=== PATIENT | female | born 1965 | race Caucasian/White ===

== ENCOUNTER 2021-12-18 10:31 | Outpatient (CLI) | payer OTHER, SELFPAY | END 2021-12-18 10:32 | disposition home or self-care (01) | LOC: INJ CL 10:33 | PROVIDERS: PCP Family Medicine; Visit Provider Family Medicine | DX: M48.062 Spinal stenosis, lumbar region with neurogenic claudication (principal); M54.16 Radiculopathy, lumbar region | CPT/HCPCS: 62323; J0702; Q9966 ==

== ENCOUNTER 2022-01-14 16:50 | Outpatient (CLI) | payer OTHER, SELFPAY ==
[2022-01-16 15:31] LABS: Luteinizing Hormone 57.3 IU/L
[2022-01-18 10:17] LABS: Estradiol by TMS 2.9 pg/mL; Estrone by TMS 6.6 pg/mL
[2022-01-19 18:53] LABS: Progesterone, HPLC-MS/MS < 0.10 ng/mL
== END 2022-01-14 16:51 | disposition home or self-care (01) ==
PROVIDERS: PCP Family Medicine; Visit Provider Family Medicine
DX: I10 Essential (primary) hypertension (principal); L65.9 Nonscarring hair loss, unspecified; N95.1 Menopausal and female climacteric states; F90.9 Attention-deficit hyperactivity disorder, unspecified type
CPT/HCPCS: 82671; 83001; 83002; 84144

== ENCOUNTER 2022-01-22 14:38 | Outpatient (CLI) | payer OTHER, SELFPAY ==
--- NOTE | 2022-01-22 15:00 | CRLHL7_ITS ---
For Patients: As a result of the Century Cures Act, medical imaging exams and procedure reports are released immediately into your electronic medical record. You may view this report before your referring provider. If you have questions, please contact your health care provider. BILATERAL SCREENING MAMMOGRAM WITH COMPUTER-AIDED DETECTION AND TOMOSYNTHESIS TECHNIQUE: CC and MLO views were obtained. These mammographic images have been obtained using full-field digital technique. These mammographic images were interpreted with the benefit of computer-aided detection. Breast Tomosynthesis was used in this interpretation. COMPARISON FILM: 12/14/2019. BREAST COMPOSITION: The breasts are heterogeneously dense, which may obscure small masses FINDINGS: Possible 0.8 cm asymmetry RIGHT superior breast, 4 cm from the nipple. Negative findings LEFT breast. IMPRESSION: Possible RIGHT breast asymmetry. ASSESSMENT: BI-RADS Category 0: Incomplete: Need Additional Imaging Evaluation and/or Prior Mammograms for Comparison RECOMMENDATION: Recommend MLO spot compression view and 90-degree lateral view. Additionally, ultrasound may be needed during the diagnostic evaluation. The [facility] will contact the patient for follow-up. A lay language report of this examination will be provided to the patient. Bev Kathleen M.D. Diagnostic/Breast Radiologist [email or web address] Transcribed: 9:34 a.m. DW/Dictated by: Bev Kathleen MD @ 01/23/2022 9:22:00 AM (Electronically Signed)
== END 2022-01-22 14:39 | disposition home or self-care (01) ==
LOC: MAMMO 14:39
PROVIDERS: PCP Family Medicine; Visit Provider Family Medicine
DX: Z12.31 Encounter for screening mammogram for malignant neoplasm of breast (principal); N63.10 Unspecified lump in the right breast, unspecified quadrant
CPT/HCPCS: 77063; 77067

== ENCOUNTER 2022-01-30 08:24 | Outpatient (CLI) | payer OTHER, SELFPAY ==
--- NOTE | 2022-01-30 08:45 | CRLHL7_ITS ---
For Patients: As a result of the Cures Act, medical imaging exams and procedure reports are released immediately into your electronic medical record. You may view this report before your referring provider. If you have questions, please contact your health care provider. DIGITAL DIAGNOSTIC RIGHT MAMMOGRAM USING TOMOSYNTHESIS AND COMPUTER-AIDED DETECTION RIGHT BREAST ULTRASOUND CLINICAL HISTORY: RIGHT breast mass/asymmetry. COMPARISON: 01/22/2022. TECHNIQUE: Digital RIGHT mammogram in two projections. Tomosynthesis and CAD utilized. Real-time ultrasound imaging of RIGHT breast with imaging documentation. BREAST COMPOSITION: The breast is heterogeneously dense, which may obscure small masses. FINDINGS: 3D spot compression MLO and 3D true lateral RIGHT breast mammograms submitted. Decreased conspicuity of the previously noted asymmetric density. No architectural distortion or suspicious masses. Targeted RIGHT breast ultrasound performed in the upper outer quadrant 11 o`clock 4 cm from the nipple. Normal fibroglandular tissue is present. No fibrocystic change or solid masses. IMPRESSION: Normal additional mammographic views and normal targeted RIGHT breast ultrasound. No evidence of malignancy. RECOMMENDATIONS: Annual BILATERAL screening mammography. Results and recommendations discussed with the patient. BI-RADS Category 2: Benign A lay language report of this examination will be provided to the patient. Dictated by Jimmy Unger MD @ 01/30/2022 9:39:36 AM jj/Dictated by: Jimmy Unger MD @ 01/30/2022 9:39:00 AM (Electronically Signed)
--- NOTE | 2022-01-30 09:15 | CRLHL7_ITS ---
For Patients: As a result of the Cures Act, medical imaging exams and procedure reports are released immediately into your electronic medical record. You may view this report before your referring provider. If you have questions, please contact your health care provider. PLEASE SEE DIGITAL DIAGNOSTIC RIGHT MAMMOGRAM PERFORMED SAME DAY CRL:amaury rebolledo/Dictated by: Jimmy Unger MD @ 01/30/2022 9:39:00 AM (Electronically Signed)
== END 2022-01-30 08:25 | disposition home or self-care (01) ==
PROVIDERS: PCP Family Medicine; Visit Provider Family Medicine
DX: N63.10 Unspecified lump in the right breast, unspecified quadrant (principal); R92.8 Other abnormal and inconclusive findings on diagnostic imaging of breast
CPT/HCPCS: 76642; 77065; G0279

== ENCOUNTER 2023-01-27 14:31 | Outpatient (CLI) | payer OTHER, SELFPAY ==
--- NOTE | 2023-01-27 14:40 | CRLHL7_ITS ---
For Patients: As a result of the Century Cures Act, medical imaging exams and procedure reports are released immediately into your electronic medical record. You may view this report before your referring provider. If you have questions, please contact your health care provider. BILATERAL SCREENING MAMMOGRAM WITH COMPUTER-AIDED DETECTION AND TOMOSYNTHESIS TECHNIQUE: CC and MLO views were obtained. These mammographic images have been obtained using full-field digital technique. These mammographic images were interpreted with the benefit of computer-aided detection. Breast Tomosynthesis was used in this interpretation. COMPARISON FILM: 01/22/22, 12/14/20, 12/14/19. FINDINGS: The breasts are extremely dense, which lowers the sensitivity of mammography IMPRESSION: There is no radiographic evidence for malignancy. ASSESSMENT: BI-RADS Category 1: Negative RECOMMENDATION: Routine screening mammogram in 1 year. A lay language report of this examination will be provided to the patient. Jimmy Unger M.D. Diagnostic Radiologist [email or web address] KEVIN/Dictated by: Jimmy Unger MD @ 01/28/2023 12:23:00 PM (Electronically Signed)
== END 2023-01-27 14:32 | disposition home or self-care (01) ==
PROVIDERS: PCP Family Medicine; Visit Provider Family Medicine
DX: Z12.31 Encounter for screening mammogram for malignant neoplasm of breast (principal); R92.2 Inconclusive mammogram
CPT/HCPCS: 77063; 77067

== ENCOUNTER 2023-02-07 09:17 | Outpatient (CLI) | payer OTHER, SELFPAY | END 2023-02-07 09:18 | disposition home or self-care (01) | LOC: NFLDREF 02-09 20:41 | PROVIDERS: PCP Family Medicine; Referring Provider Family Medicine; Visit Provider Family Medicine | DX: Z00.00 Encounter for general adult medical examination without abnormal findings (principal); E55.9 Vitamin D deficiency, unspecified; I10 Essential (primary) hypertension; E78.5 Hyperlipidemia, unspecified | CPT/HCPCS: 80048; 80061 ==

== ENCOUNTER 2023-02-13 09:17 | Outpatient (CLI) | payer OTHER, SELFPAY | END 2023-02-13 09:18 | disposition home or self-care (01) | LOC: NFLDREF 02-14 03:29 | PROVIDERS: PCP Family Medicine; Referring Provider Family Medicine; Visit Provider Family Medicine | DX: Z00.00 Encounter for general adult medical examination without abnormal findings (principal); E55.9 Vitamin D deficiency, unspecified; I10 Essential (primary) hypertension | CPT/HCPCS: 82306 ==

== ENCOUNTER 2023-03-06 12:54 | Outpatient (CLI) | payer OTHER, SELFPAY ==
--- NOTE | 2023-03-06 13:50 | W.PM.STED ---
Stress Test Note Date Date Seen: 03/06/23 Date of test: 03/06/23 Providers Primary care provider: Alexander Ochoa Stress test physician: Judith Pacheco Stress Test Note Stress test ordered: Stress Echo Indication for test: Atypical chest pain, hypertension Stress test medicine: None Results discussion: Resting EKG: Sinus rhythm, 90 beats per minute Resting blood pressure: 134/75 Stress test: Patient was exercised on the treadmill following standard Brayan protocol. Patient exercised to 12 minutes, exercise terminated due to her reaching her exercise capacity, no chest pain. She achieved 12.3 Mets. She had a maximum heart rate of 148 beats per minute which was 106% of a calculated target heart rate of 139. She had a rate pressure product of 21,920. She had flipped T-waves in lead [address] segment changes. There was no arrhythmia. Impression: Subjectively negative, objectively negative EKG portion of this stress test. Follow up suggested: Await echo images to couple this report for a full formal diagnostic. Patient was discharged from here in stable condition. Her ordering physician will get a report once the echo is complete.
[2023-03-06 13:54] VITALS: BP 133/84; PULSE 95
== END 2023-03-06 12:55 | disposition home or self-care (01) ==
PROVIDERS: PCP Family Medicine; Visit Provider Family Medicine
DX: R07.9 Chest pain, unspecified (principal); I10 Essential (primary) hypertension
CPT/HCPCS: 93016; 93325; 93351

== ENCOUNTER 2023-08-18 07:35 | Outpatient (CLI) | payer OTHER, SELFPAY | END 2023-08-18 07:36 | disposition home or self-care (01) | LOC: NFLDREF 08-20 06:48 | PROVIDERS: PCP Family Medicine; Referring Provider Family Medicine; Visit Provider Family Medicine | DX: Z13.220 Encounter for screening for lipoid disorders (principal); Z13.228 Encounter for screening for other metabolic disorders | CPT/HCPCS: 80048; 80061 ==

== ENCOUNTER 2023-08-25 17:56 | Outpatient (CLI) | payer OTHER, SELFPAY | END 2023-08-25 17:57 | disposition home or self-care (01) | LOC: LKVREF 17:56 | PROVIDERS: PCP Family Medicine; Visit Provider Family Medicine | DX: E55.9 Vitamin D deficiency, unspecified (principal) | CPT/HCPCS: 82306 ==

== ENCOUNTER 2024-01-29 16:23 | Outpatient (CLI) | payer OTHER, SELFPAY ==
--- OUTSIDE RECORDS SUMMARY | 2024-01-29 16:25 | XMS_ITS | Continuity of Care Document ---
Author Organization [facility] Address [address] [address] [place] [address] Phone Care Team Providers Care Retail Commission Sales Associate Name Role Phone Unavailable Unavailable Unavailable Allergies, Adverse Reactions, Alerts Substance Reaction Status Criticality No Known Allergies Active No Inform ation Medications Medication Instructions Dosage Effective Dates (start - stop) Status Comments Cholestyramine Light 4 gram powder for susp in a packet take 1 packet by ORAL route every day dissolved in 2 to 6 ounces of water or noncarbonated beveragebefore meals 4 G - Active losartan 25 mg tablet take 1 tablet by o ral route every day 25 MG - Active sertraline 100 mg tablet take 1 Tablet by ORAL route every day 100 MG - Active Procedures Procedure Date Offic Cons New/estab Mod Routine Serum Collection Gg; Iga, Igd, Igg, Igm, Ea Advance Directives Directive Yes / No Effective Date File Name No Information Encounters Encounter Description Practice Location Reason(s) For Visit Diagnoses Date Provider Providers Copied on Encounter [facility], [address] [address], [place], [id number], [place] tel:[phone] [facility] No Information No Information July PAC. tel:[phone] [facility] MARY ANN, [address] [address], [place], [id number], [place] tel:[phone] [facility] No Information No Information Offic Cons New/estab Mod [facility], [address] [address], [place], [id number], [place] tel:[phone] [facility] GI Symptoms or Concerns (chief complaint) Irritable bowel syndrome with diarrheaDietar y counseling and surveillance 5 No Information July Reza PATEL. tel:[phone] erring Provider: July Reza PATEL L, [address], [place], [address]. tel:[phone] Family History Family Member Type Diagnosis Age At Onset No Information Payers Payer name Insurance type Covered republican ID Authoriza rochelle(s) [employer] [place] [id number] Social History Type Description Quantity Date Captured Comments Alcohol Use Details Unknown Caffeine Use Details Unknown Tobacco Use Status No Information Smoking Status No Information Sex Female Chief Complaint And Reason For Visit No Information Reason For Referral Reason For Referral No Information Plan Of Treatment Date Type Action Status Goal Lifestyle education regardin g diet completed History Of Present Illness Encounter Date Complaint History Of Prese nt Illness GI Symptoms or Concerns The ray power is a very pleasant 49-year-old female who presented to clinic today for evaluation of morning diarrhea. Ms. Carlson has been evaluated extensively for her loose stool, and has been seen by an technical inspector in [facility] and also had a colonoscopy performed in [facility] in May of this last year. I did review this report. Random biopsies were taken were negative for microscopic colitis. In talking with Antonella further, she reports her diarrheal symptoms are only bothersome in the morning. She will move her bowels three to four times in the morning before heading to work. She denies any nocturnal symptoms. She has not had any fresh or altered blood in her stool. Her weight has been stable and her appetite has been good. She denies any fevers or chills. There have been no skin lesions. Further 10-point review of systems is unremarkable. Patient does not use tobacco products nor she consumes heavy amounts of alcohol. Functional Status Date Functional Assessmen t No Information Instructions Date Instruction Additional Infor mation Lifestyle education regarding di et Related to Dietary counseling and surveillance Assessments Type Assessment Date No Information Patient Care Teams Name Effective Dates (start - stop) Status Members No Information
--- OUTSIDE RECORDS SUMMARY | 2024-01-29 16:26 | XMS_ITS | Continuity of Care Document ---
Author Organization [facility] Address [address] [place] [address] Phone Care Team Providers Care Traffic Manager Name Role Phone Bryon LINCOLN, PhD, Josef Unavailable Unavai lable Allergies, Adverse Reactions, Alerts Substance Reaction Status Criticality No Known Allergies Active No Inform ation Medications Medication Instructions Dosage Effective Dates (start - stop) Status Comments ADDERALL (unknown strength) Not Available - Active METOPROLOL SUCCINATE (unknown strength) Not Available - Active VENLAFAXINE HCL (unknown strength) Not Available - Active Procedures Procedure Date Office/Outpatient Visit,Est, Mod 2022 Office/Outpatient Visit,Est, Low 2022 Office/Outpatient Visit,New, Mod 2021 Advance Directives Directive Yes / No Effective Date File Name No Information Encounters Encounter Description Practice Location Reason(s) For Visit Diagnoses Date Provider Providers Copied on Encounter Office/Outpat ient Visit,Est, Mod [facility], [address], [facility] [place], [id number], [place] tel:[phone] [facility] [place] Spinal stenosis, lumbar region with neurogenic claudication Bryon Bahena. [facility], [address], [place], [address], [place]. tel:[phone] Referring Provider: Jatinder Crandall, [employer] [facility] [address], [place], [address]. tel:[phone] Office/Outpat ient Visit,New, Mod [facility], [address], [place], [place], [id number], [place] tel:[phone] [facility] [place] Spinal stenosis, lumbar region with neurogenic claudication Bryon Bahena. [facility], [address], [place], [address], [place]. tel:[phone] Referring Provider: Jatinder Crandall, [address], [place], [address]. tel:[phone] Family History Family Member Type Diagnosis Age At Onset No Information Payers Payer name Insurance type Covered republican ID Ham byrd(s) [facility] [id number] Social History Type Description Quantity Date Captured Comments Alcohol Use Details Unknown Caffeine Use Details Unknown Tobacco Use Status Current non-smoker Smoking Status Never smoker Non-Smoking Tobacco Use Details : No Details Available : No Details Available Sex Female Vital Signs Date / Time: Height Weight BMI Pulse Rate Blood Pressure Temperature Respiratory Rate Body Surface Area Head Circumference Head Circ. Percentile Wt./Vinh. Percentile BMI percentile Pulse Ox Inhaled Ox 3:10 PM 65.50 in 66.224 kg (146.00 lbs) 23.9 3 kg/m eter (2) Chief Complaint And Reason For Visit No Information Reason For Referral Reason For Referral No Information History Of Present Illness Encounter Date Complaint History Of Prese nt Illness No Information Functional Status Date Functional Assessmen t No Information Instructions Date Instruction Additional Infor mation No Information Assessments Type Assessment Date No Information Patient Care Teams Name Effective Dates (start - stop) Status Members No Information
--- OUTSIDE RECORDS SUMMARY | 2024-01-29 16:26 | XMS_ITS | Clinical Summary ---
Author Organization [facility] Address [place], [place] [address] Care Team Providers Care Monitoring Engineer Name Role Phone Unknown, Doctor Unavailable Unavailable [place], *[facility] Primary Care Provider Unavailable Allergies No known active allergies Medications Medication Sig Dispensed Refills Start Date End Date Status venlafaxine (EFFEXOR XR) 75 mg cp24 Extended-Release capsule 11/03/2021 Active Amphetamine-Dextroamphe tamine (ADDERALL) 15 mg tablet Take 15 mg by mouth. 10/07/2021 Active Active Problems Problem Noted Date Diagnosed Date ADHD 05/13/2022 History of hysterectomy 05/13/2022 Obstructive sleep apnea 07/17/2011 Gastroesophageal reflux 02/08/2009 Generalized anxiety disorder 02/08/2009 Obsessive compulsive personality disorder 2008 Immunizations Name Administration Dates Next Due Tdap 07/16/2012 Family History Medical History Relation Name Comments Alzheimer's disease Father Heart Disease Mother Relation Name Status Comments Father Mother Social History Tobacco Use Types Packs/Day Years Used Date Smoking Tobacco: Former Smokeless Tobacco: Never Tobacco Cessation:Counseling Given: Yes Alcohol Use Standard Drinks/Week Comments Yes 0 (1 standard drink = 0.6 oz pur e alcohol) Occassionally Social Connections Answer Date Recorded Frequency of Communication with Friends and Fami ly Not on file 04/16/2021 Financial Resource Strain Answer Date R ecorded Difficulty of Paying Living Expenses Not on file 04/16/2021 Difficulty of Paying Living Expenses Not on file 04/16/2021 Sex and Gender Information Value Date Recorded Sex Assigned at Not on file Gender Identity Not on file Sexual Orientation Not on file Obstetrics History Last Filed Vital Signs Vital Sign Reading Time Taken Comments Blood Pressure 110/77 05/13/2022 10:42 AM [employer] Pulse 90 05/13/2022 10:42 AM [employer] Temperature 37 ??C (98.6 ??F) 05/13/2022 10: 42 AM [employer]OR Respiratory Rate 18 11/12/2021 11:0 6 AM CDT Oxygen Saturation 100% 05/13/2022 10: 42 AM [employer] T[employer] E[employer]OR Inhaled Oxygen Concentration - - Weight 67.5 kg (148 lb 12.8 oz) 01/17/2022 2:25 PM CDT shoes on Height 167.6 cm (5' 6) 07/07/2014 3:43 PM CDT Body Mass Index 24.02 07/07/2014 3:43 PM CDT Plan of Treatment Health Maintenance Due Date Last Done Comments Depression screening for age 12+ 1978 HIV for age 15-65 1981 BMI (ht and wt on same day) for age 18+ 1984 Hepatitis C screening for ag e 18-79 1984 Pap test for age 21-65 07/21/2009 07/21/2006 Lipids for age 45-75 07/24/2011 Mammogram for age 45-75 07/24/2011 Zoster (shingles) series for age 50+ (1 of 2) 2016 Tetanus booster 07/16/2022 07/16/2012 COVID-19 vaccine series ( season) 2023 08/01/2020, 07/08/2020 Influenza for age 50-64 12/21/2023 Colonoscopy through age 75 06/02/2024 06/02/2014 Tdap Completed 07/16/2012 Pneumococcal series for age 6-64 Aged Out No longer eligible b ased on patient's age to complete this topic Procedures Procedure Name Priority Date/Time Associated Diagnosis Comments SCAN-COLONOSCOPY 06/02/2014 12:0 0 AM [employer] E[employer] GYNECOLOGICAL PANEL Timed 07/21/2006 7 :57 AM CDT from Last 3 Months or Most Recently Relevant to Health Maintenance Results * SCAN-COLONOSCOPY (06/02/2014 12:00 AM WOOD TANK E[employer]OR) Narrative 06/02/2014 12:00 AM WOOD TANK E[employer]OR Procedure Note Scanner - 06/02/2014 12:00 AM CST Scanner OTHER * GYNECOLOGICAL PANEL (07/21/2006 7:57 AM CDT) CYTOLOGY ??CYTOPATHOLOGY REPORT ??[facility] ?? Status: Final Report ? [id number] ?? CLINICAL INFORMATION ?LMP ? : 07/13/06 ?Previous Pap Date ? : 05/27 ?Previous PAP Dx ? : Normal ?Previous [place]/bx date : None ?Previous Colposcopy/Bx: None ?Hormone Usage ? : Not given ?Appearance of Cervix ??: Not given ?[place]/Bx done today ?: No ?HPV Request ? : Reflex HPV test if PAP Dx ASCUS ?? SPECIMEN SOURCE ?: Cervical/vaginal ThinPrep Vial, screening ?? SPECIMEN ADEQUACY ?: Satisfactory for evaluation Endocervical ?component present. ? INTERPRETATION/RES ULT: ?Negative for intraepithelial lesion or malignancy. ? Cytology 1st Screener : ??ll ?? Signed by: ? ll ?? This specimen was screened by the FDA approved ThinPrep Imaging ?? System and manually reviewed. ?? NOTE: The Pap test is a screening technique, not a diagnostic ?? procedure. It is used primarily to screen for squamous cancers and ?? precursor lesions. Published studies have shown that it is subject to ?? both false negative and false positive results. The pap test should ?? not be used as the sole means to diagnose or exclude pre-malignant and ?? malignant lesions. ?? COLLECTED: 07/21/06 ?? ACCESSIONED: 07/23/06 ?? SIGNED: 07/24/06 [facility] 07/21/2006 7:57 AM CDT 2006 7:57 AM CDT July Reza ZAIDI PATHOLOGY/CYTOLOGY Performing Organization Address City/State/ZIP Co in Phone Number [facility] INTERNAL ZIP [address] [place] [id number] from Last 3 Months or Most Recently Relevant to Health Maintenance Care Teams Monitoring Engineer Relationship Specialty Start Date End Date [place], [facility] PCP - General 04/02/21 Unknown, Doctor 08/02/09
--- NOTE | 2024-01-29 16:45 | CRLHL7_ITS ---
For Patients: As a result of the Century Cures Act, medical imaging exams and procedure reports are released immediately into your electronic medical record. You may view this report before your referring provider. If you have questions, please contact your health care provider. Indication: Left-sided neck pain Technique: CT Chest W/ 72CC ISOVUE 370 Please note that all CT scans at this facility use dose modulation, iterative reconstruction, and/or weight-based dosing when appropriate to reduce radiation dose to as low as reasonably achievable. Comparison: None Findings: Mild degenerative arthrosis at the acromioclavicular joint bilaterally. Old left clavicle fracture. Chronic wedging of the T7 superior endplate with a prominent Schmorl`s node. Mild multilevel degenerative disc disease. Subpleural nodule left upper lobe measures 3.9 millimeters, 3/53. Perifissural nodule left lower lobe measures 2.7 millimeters, 3/64. nodular density within the right middle lobe is present measuring 9.3 millimeters, 3/69. Mild dependent areas of atelectasis in both lung bases. No pleural effusion or pulmonary edema. No adenopathy. Impression: Old left mid clavicle fracture deformity. Chronic appearing wedge compression deformity of T7 associated with a prominent Schmorl`s node. Bilateral pulmonary nodules measuring up to 9.3 millimeters in the right middle lobe. Follow-up CT in 6 months recommended. Please note that all CT scans at this facility use dose modulation, iterative reconstruction, and/or weight-based dosing when appropriate to reduce radiation dose to as low as reasonably achievable. Dictated by Jimmy Unger MD @ 01/30/2024 12:54:26 PM (Electronically Signed)
== END 2024-01-29 16:24 | disposition home or self-care (01) ==
LOC: CT 16:24
PROVIDERS: PCP Family Medicine; Visit Provider Family Medicine
DX: M54.2 Cervicalgia (principal); M48.54XS Collapsed vertebra, not elsewhere classified, thoracic region, sequela of fracture; R91.8 Other nonspecific abnormal finding of lung field
CPT/HCPCS: 71260; Q9967

== ENCOUNTER 2024-01-30 12:33 | Outpatient (CLI) | payer OTHER, SELFPAY ==
--- OUTSIDE RECORDS SUMMARY | 2024-01-30 12:36 | XMS_ITS | Continuity of Care Document ---
Author Organization [facility] Address [address] [place] [address] Phone Care Team Providers Care Health Promotion Educator Name Role Phone Bryon LINCOLN, PhD, Josef Unavailable Unavai lable Allergies, Adverse Reactions, Alerts Substance Reaction Status Criticality No Known Allergies Active No Inform ation Medications Medication Instructions Dosage Effective Dates (start - stop) Status Comments VENLAFAXINE HCL (unknown strength) Not Available - Active METOPROLOL SUCCINATE (unknown strength) Not Available - Active ADDERALL (unknown strength) Not Available - Active Procedures Procedure Date Office/Outpatient Visit,Est, Mod 2022 Office/Outpatient Visit,Est, Low 2022 Office/Outpatient Visit,New, Mod 2021 Advance Directives Directive Yes / No Effective Date File Name No Information Encounters Encounter Description Practice Location Reason(s) For Visit Diagnoses Date Provider Providers Copied on Encounter Office/Outpat ient Visit,Est, Mod [facility], [address], [facility] [place], [id number], [place] tel:[phone] [facility] [place] Spinal stenosis, lumbar region with neurogenic claudication Bryon Bahena. [facility], [address], [place], [address], [place]. tel:[phone] Referring Provider: Jatinder Crandall, [employer] [facility] [address], [place], [address]. tel:[phone] Office/Outpat ient Visit,New, Mod [facility], [address], [place], [place], [id number], [place] tel:[phone] [facility] [place] Spinal stenosis, lumbar region with neurogenic claudication Bryon Bahena. [facility], [address], [place], [address], [place]. tel:[phone] Referring Provider: Jatinder Crandall, [address], [place], [address]. tel:[phone] Family History Family Member Type Diagnosis Age At Onset No Information Payers Payer name Insurance type Covered green party ID Ham byrd(s) [facility] [id number] Social History Type Description Quantity Date Captured [...]
--- OUTSIDE RECORDS SUMMARY | 2024-01-30 12:37 | XMS_ITS | Clinical Summary ---
Author Organization [facility] Address [place], [place] [address] Care Team Providers Care Hopper Feeder Name Role Phone Unknown, Doctor Unavailable Unavailable [place], *[facility] Primary Care Provider Unavailable Allergies No known [...] Comments Blood Pressure 110/77 05/13/2022 10:42 AM RESIDENT SERVICES DIRECTOR Pulse 90 05/13/2022 10:42 AM RESIDENT SERVICES DIRECTOR Temperature 37 ??C (98.6 ??F) 05/13/2022 10: 42 AM RESIDENT SERVICES DIRECTOR Respiratory Rate 18 11/12/2021 11:0 6 AM CDT Oxygen Saturation 100% 05/13/2022 10: 42 AM RESIDENT SERVICES DIRECTOR Inhaled Oxygen Concentration - - Weight 67.5 [...] Diagnosis Comments SCAN-COLONOSCOPY 06/02/2014 12:0 0 AM RESIDENT SERVICES DIRECTOR GYNECOLOGICAL PANEL Timed 07/21/2006 7 :57 AM CDT from Last 3 Months or Most Recently Relevant to Health Maintenance Results * SCAN-COLONOSCOPY (06/02/2014 12:00 AM RESIDENT SERVICES DIRECTOR) Narrative 06/02/2014 12:00 AM RESIDENT SERVICES DIRECTOR Procedure Note Scanner - 06/02/2014 12:00 AM CST Scanner OTHER * GYNECOLOGICAL PANEL (07/21/2006 7:57 AM CDT) CYTOLOGY ??CYTOPATHOLOGY REPORT ??[facility] ?? Status: Final Report ? [id number] ?? CLINICAL INFORMATION ?LMP ? : 07/13/06 ?Previous Pap Date ? : 05/27 ?Previous PAP Dx ? : Normal ?Previous [place]/bx date : None ?Previous Colposcopy/Bx: None ?Hormone Usage ? : Not given ?Appearance of Cervix ??: Not given ?[place]/Bx done today ?: No ?HPV Request ? [...] 07/21/06 ?? ACCESSIONED: 07/23/06 ?? SIGNED: 07/24/06 [facility] 07/21/2006 7:57 AM CDT 2006 7:57 AM CDT July Reza ZAIDI PATHOLOGY/CYTOLOGY Performing Organization Address City/State/ZIP [place] Phone Number [facility] INTERNAL ZIP [phone] [place] [phone] from Last 3 Months or Most Recently Relevant to Health Maintenance Care Teams Hopper Feeder Relationship Specialty Start Date End Date Hollsopple, [facility] PCP - General 04/02/21 Unknown, Doctor 08/02/09
--- NOTE | 2024-01-30 13:00 | CRLHL7_ITS ---
For Patients: As a result of the Century Cures Act, medical imaging exams and procedure reports are released immediately into your electronic medical record. You may view this report before your referring provider. If you have questions, please contact your health care provider. BILATERAL SCREENING MAMMOGRAM WITH COMPUTER-AIDED DETECTION AND TOMOSYNTHESIS TECHNIQUE: CC and MLO views were obtained. These mammographic images have been obtained using full-field digital technique. These mammographic images were interpreted with the benefit of computer-aided detection. Breast Tomosynthesis was used in this interpretation. COMPARISON FILM: 01/27/23, 01/22/22, 12/14/20. FINDINGS: The breasts are extremely dense, which lowers the sensitivity of mammography IMPRESSION: There is no radiographic evidence for malignancy. ASSESSMENT: BI-RADS Category 1: Negative RECOMMENDATION: Routine screening mammogram in 1 year. A lay language report of this examination will be provided to the patient. Jimmy Unger M.D. Diagnostic Radiologist [email or web address] Transcribed: 1:41 [email or web address]/Dictated by: Jimmy Unger MD @ 02/09/2024 9:18:00 AM (Electronically Signed)
== END 2024-01-30 12:34 | disposition home or self-care (01) ==
LOC: MAMMO 12:34
PROVIDERS: PCP Family Medicine; Visit Provider Physician Assistant
DX: Z12.31 Encounter for screening mammogram for malignant neoplasm of breast (principal); R92.333 Mammographic heterogeneous density, bilateral breasts
CPT/HCPCS: 77063; 77067

== ENCOUNTER 2024-06-17 09:00 | Outpatient (CLI) | payer BC, SELFPAY ==
--- NOTE | 2024-06-17 10:37 | W.ANESCHARGE ---
Anesthesia Charges Start Date/Time Anesthesia Start Date: 06/17/24 Anesthesia Start Time: 09:54 Stop Date/Time Anesthesia Stop Date: 06/17/24 Anesthesia Stop Time: 10:35 Coding CPT Codes CPT Codes: AMA VALENTIN INTST NDSC NOS - 75963 ([id number]) P2 - PATIENT W/MILD SYST DISEASE, QX - OFFICE HELPER CLERICAL SVC W/ MD MED DIRECTION, QK - DELINQUENCY PREVENTION SOCIAL WORKER 2-4 CNCRNT ANEJulio C PROC
--- NOTE | 2024-06-17 11:39 | W.ANESCHARGE ---
Anesthesia Charges Start Date/Time Anesthesia Start Date: 06/17/24 Anesthesia Start Time: 09:54 Stop Date/Time Anesthesia Stop Date: 06/17/24 Anesthesia Stop Time: 10:35 Coding CPT Codes CPT Codes: AMA LWR INTST NDSC NOS - 15188 ([id number]) P2 - PATIENT W/MILD SYST DISEASE, QK - EXECUTIVE ADVISOR 2-4 CNCRNT ANES PROC, QX - DRIVE WORKER SVC W/ MD MED DIRECTION
== END 2024-06-17 09:01 | disposition home or self-care (01) ==
LOC: OP CLINIC 09:02
PROVIDERS: PCP Family Medicine; Visit Provider Surgery
DX: Z12.11 Encounter for screening for malignant neoplasm of colon (principal); D12.3 Benign neoplasm of transverse colon
CPT/HCPCS: 00811; 45381; 45385; 88305; J2704

== ENCOUNTER 2024-06-30 13:00 | Outpatient (RCR) | payer BC, SELFPAY | END 2024-10-28 23:59 | disposition home or self-care (01) | PROVIDERS: PCP Family Medicine; Visit Provider Family Medicine | DX: M54.2 Cervicalgia (principal); Z51.89 Encounter for other specified aftercare | CPT/HCPCS: 97032; 97110; 97140; 97161 ==

== ENCOUNTER 2024-09-16 08:07 | Outpatient (CLI) | payer BC, SELFPAY | END 2024-09-16 08:08 | disposition home or self-care (01) | LOC: NFLDREF 09-19 12:19 | PROVIDERS: PCP Family Medicine; Referring Provider Family Medicine; Visit Provider Family Medicine | DX: E78.5 Hyperlipidemia, unspecified (principal); I10 Essential (primary) hypertension | CPT/HCPCS: 80053; 80061 ==

== ENCOUNTER 2024-09-17 14:43 | Outpatient (CLI) | payer BC, SELFPAY ==
--- NOTE | 2024-09-17 15:00 | CRLHL7_ITS ---
For Patients: As a result of the 21st Century Cures Act, medical imaging exams and procedure reports are released immediately into your electronic medical record. You may view this report before your referring provider. If you have questions, please contact your health care provider. INDICATION: Follow-up nodule. TECHNIQUE: CT chest without contrast. COMPARISON: CT chest without contrast January 2024 53 FINDINGS: Lungs and pleura: Stable solid subpleural nodule of 4 mm in the left upper lobe (2/37). Solid nodule of 3 millimeter in the left lower lobe (2/46) and perifissural solid nodule of 7 millimeter in the right middle lobe (4/26). No new pulmonary nodule. No effusion or pneumothorax. Heart and vasculature: Heart size is normal. Thoracic aorta and pulmonary artery are normal in caliber. Lymph nodes/mediastinum: No suspicious mediastinal or axillary lymphadenopathy.. Chest wall: No masses. Upper abdomen: Nonobstructing right nephrolithiasis.. Bones: Multilevel degenerative changes of the spine. No concerning bony lesion. Left clavicular deformity is unchanged. Large Schmorl`s node along the superior endplate of T7 with mild anterior wedging compression. IMPRESSION: Stable solid pulmonary nodules, largest perifissural nodule in the right middle lobe measures 7 mm. No new or concerning lung nodule. SOCIETY GUIDELINES - SOLID NODULES: SINGLE LOW RISK - nodule less than 6 mm: No routine follow-up. - nodule 6-8 mm: CT at 6-12 months, then consider CT at 18-24 months. - nodule greater than 8 mm: Consider CT at 3 months, PET/CT or tissue sampling. SINGLE HIGH RISK - nodule less than 6 mm: Optional CT at 12 months. - nodule 6-8 mm: CT at 6-12 months, then CT at 18-24 months. - nodule greater than 8 mm: Consider CT at 3 months, PET/CT or tissue sampling. MULTIPLE LOW RISK - nodule less than 6 mm: No routine follow-up. - nodule 6-8 mm: CT at 3-6 months, then consider CT at 18-24 months. - nodule greater than 8 mm: CT at 3-6 months, then consider CT at 18-24 months. MULTIPLE HIGH RISK - nodule less than 6 mm: Optional CT at 12 months. - nodule 6-8 mm: CT at 3-6 months, then at 18-24 months. - nodule greater than 8 mm: CT at 3-6 months, then at 18-24 months. Please note that all CT scans at this facility use dose modulation, iterative reconstruction, and/or weight-based dosing when appropriate to reduce radiation dose to as low as reasonably achievable. Dictated by Lauryn Correa MD @ 09/20/2024 3:05:02 PM (Electronically Signed)
== END 2024-09-17 14:44 | disposition home or self-care (01) ==
LOC: CT 14:43
PROVIDERS: PCP Family Medicine; Visit Provider Family Medicine
DX: R91.1 Solitary pulmonary nodule (principal); R91.8 Other nonspecific abnormal finding of lung field
CPT/HCPCS: 71250

== ENCOUNTER 2025-01-06 13:53 | Outpatient (CLI) | payer BC, SELFPAY | END 2025-01-06 13:54 | disposition home or self-care (01) | PROVIDERS: PCP Family Medicine; Visit Provider Family Medicine | DX: R00.2 Palpitations (principal); N95.1 Menopausal and female climacteric states | CPT/HCPCS: 82671; 83001; 83002; 84144; 84443 ==

== ENCOUNTER 2025-01-31 08:05 | Outpatient (CLI) | payer BC, SELFPAY ==
--- NOTE | 2025-01-31 08:15 | CRLHL7_ITS ---
For Patients: As a result of the Century Cures Act, medical imaging exams and procedure reports are released immediately into your electronic medical record. You may view this report before your referring provider. If you have questions, please contact your health care provider. INDICATION: BILATERAL SCREENING MAMMOGRAM, ASYMPTOMATIC 59 Y/O FEMALE COMPARISON: 01/30/2024, 01/27/2023, 01/30/2022 TECHNIQUE: Digital mammogram in CC and MLO projections including computer-aided detection (CAD) and tomosynthesis. BREAST COMPOSITION: The breasts are heterogeneously dense, which may obscure small masses. FINDINGS: No suspicious findings. ASSESSMENT: BI-RADS 1 Negative RECOMMENDATION: Annual screening mammogram. A lay language report of this examination will be provided to the patient. Dictated by: Monique Hay MD @ 02/01/2025 17:56:10 (Electronically Signed)
== END 2025-01-31 08:06 | disposition home or self-care (01) ==
LOC: MAMMO 08:06
PROVIDERS: PCP Family Medicine; Visit Provider Family Medicine
DX: Z12.31 Encounter for screening mammogram for malignant neoplasm of breast (principal); R92.333 Mammographic heterogeneous density, bilateral breasts
CPT/HCPCS: 77063; 77067